=== PATIENT | male | born 1965 | race Caucasian/White ===

== ENCOUNTER 2017-04-18 13:02 | Observation (INO) | payer OTHER, SELFPAY | END 2017-04-20 09:30 | disposition home or self-care (01) | PROVIDERS: Admitting Provider Family Medicine; Emergency Provider Emergency Medicine; Family Provider Internal Medicine Adolescent Medicine; Visit Provider Internal Medicine Adolescent Medicine | DX: K25.0 Acute gastric ulcer with hemorrhage (principal); I10 Essential (primary) hypertension | CPT/HCPCS: 43239; 36415; 80048; 80053; 85014; 85018; 85025; 86850; 86900; 86901; 86920; 86922; 93005; 96365; 96375; 96376; 99285; G0378; J2270; J2405 ==

== ENCOUNTER → 2017-06-09 07:46 | Outpatient (CLI) | payer OTHER, SELFPAY ==
[2017-06-09 08:32] LABS: White Blood Count 4.9 K/mm3 (4.8-10.8)
[2017-06-09 08:36] LABS: Basophils % 1.1 % (0.1-2.0); Eosinophils # 0.2 K/mm3 (0.0-0.4); Lymphocytes # 1.3 K/mm3 (0.7-4.5); Lymphocytes % 28.8 K/mm3 (10-50); Mean Corpuscular HGB Conc 29.6 g/dL (31.8-35.4); Mean Corpuscular Hemoglobin 21.6 pg (27.0-31.2); Mean Platelet Volume 7.4 fl (7.4-10.4); Monocytes # 0.4 K/mm3 (0.1-1.0); Monocytes % 8.7 % (1.7-9.3); Neutrophils # 2.8 K/mm3 (1.8-7.8); Neutrophils % 57.3 % (37.0-80.0); Platelet Count 228 K/mm3 (142-424); Red Cell Distribution Width 14.9 % (11.5-17.5)
[2017-06-09 08:37] LABS: Basophils # 0.1 K/mm3 (0-0.2)
[2017-06-09 08:43] LABS: Anion Gap 8.2 mEq/L (5-15); Blood Urea Nitrogen 12 mg/dL (7-18); Carbon Dioxide 32 mmol/L (21.0-32.0); Chloride 103 mmol/L (98-107); Creatinine,Serum 0.66 mg/dL (0.70-1.30); Estimated Glomerular Filt Rate 128 ml/min (>60); GFR (African American) 155 ML/MIN (>60); Glucose 97 mg/dL (74-106); Potassium 4.2 mmoL/L (3.5-5.1); Sodium 139 mmol/L (136-145)
[2017-06-09 08:48] LABS: Hemoglobin 8.7 g/dL (14.1-18.0); Red Blood Count 4.02 M/mm3 (4.60-6.20)
[2017-06-09 08:49] LABS: Hematocrit 29.3 % (42.0-52.0)
== END ==
PROVIDERS: PCP Internal Medicine Adolescent Medicine; Visit Provider Surgery
DX: K25.3 Acute gastric ulcer without hemorrhage or perforation (principal)
CPT/HCPCS: 36415; 80048; 85025

== ENCOUNTER → 2017-06-20 10:59 | Outpatient (POV) | payer OTHER, SELFPAY ==
[2017-06-20 11:07] VITALS: BP 178/65; PULSE 85; RESP 20; TEMP 36.4; O2SAT 100; BMI 43.0
--- NOTE | 2017-06-20 11:27 | HMH.PAINSOAP ---
[facility] Pain Management SOAP Note Subjective:: This patient is a pleasant 52-year-old white male who presents today for pain medication refills. Patient is being treated for chronic pain secondary to degenerative disease of the lumbar line and bilateral sacroiliitis. Patient had been scheduled for a left SI joint injection however he had been in the hospital for gastric ulcers. Patient is doing better now and would like to revisit getting bilateral SI joint injections. Patient is being medically managed with [place] 7.5 mg 1 p.o. 3 times daily. States the medication helps 60-70%. Patient denies any side effects to the medication. 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 He rates his pain as 7 out of 10 today. Patient states certain movements exacerbate the pain. While resting relieves it. ROS General: no recent weight change, no fever, no sleep disturbances Respiratory: no cough, no shortness of air, no recurring pulmonary infections Cardiovascular/Peripheral Vascular: No chest pain, No palpitations, no edema, no shortness of breath. Gastrointestinal: no incontinence, normal bowel movements reported Genitourinary: no incontinence Musculoskeletal: Back pain, SI joint pain Psychiatric: normal mood/ affect, Neurological: [denies weakness in extremities], [denies balance issues] Objective:: Physical Exam General: Alert and oriented x3, no acute distress, pleasant and cooperative, [on room air] Lungs: Resps E/U, Symmetrical chest expansion, Eyes: PERRL Musculoskeletal: Flexion and extension of lumbar spine somewhat guarded secondary to pain, deep tendon reflexes normal, strength in upper and lower extremities [5/5], slightly antalgic gait noted, positive Jewell's test bilaterally Neurological: speech clear, coronary care unit nurse equal, no gross sensory deficits Assessment:: Degenerative disc disease of the lumbar spine, bilateral sacroilitis Plan:: We will refill this patient's medication [place] 7.5 mg p.o. 3 times daily. Patient's UDS in the past has been appropriate. Patient is [facility] [id number] reviewed and appropriate. Dr. Figueroa reviewed this chart and agrees with this plan of care. We will give him two months worth of prescriptions and he can return for his third month. We will also schedule bilateral SI joint injections for this. He has had these in the past with great relief. Patient has been prescribed a controlled substance after being counseled on the medication, medication safety, and possible side effects. AZIZA report has been obtained and reviewed prior to prescription and found to be appropriate. Opioid contract was reviewed and signed by the patient, and that they have agreed to all of the terms set forth by our compliance program. This note was dictated using voice recognition software and may contain errors or omissions
--- NOTE | 2017-06-20 11:31 | P.CONS_ITS ---
[facility] Pain Management SOAP Note Subjective:: This patient is a pleasant 52-year-old white male who presents today for pain medication refills. Patient is being treated for chronic pain secondary to degenerative disease of the lumbar line and bilateral sacroiliitis. Patient had been scheduled for a left SI joint injection however he had been in the hospital for gastric ulcers. Patient is doing better now and would like to revisit getting bilateral SI joint injections. Patient is being medically managed with [place] 7.5 mg 1 p.o. 3 times daily. States the medication helps 60- 70%. Patient denies any side effects to the medication. 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 He rates his pain as 7 out of 10 today. Patient states certain movements exacerbate the pain. While resting relieves it. ROS General: no recent weight change, no fever, no sleep disturbances Respiratory: no cough, no shortness of air, no recurring pulmonary infections Cardiovascular/Peripheral Vascular: No chest pain, No palpitations, no edema, no shortness of breath. Gastrointestinal: no incontinence, normal bowel movements reported Genitourinary: no incontinence Musculoskeletal: Back pain, SI joint pain Psychiatric: normal mood/ affect, Neurological: [denies weakness in extremities], [denies balance issues] Objective:: Physical Exam General: Alert and oriented x3, no acute distress, pleasant and cooperative, [ on room air] Lungs: Resps E/U, Symmetrical chest expansion, Eyes: PERRL Musculoskeletal: Flexion and extension of lumbar spine somewhat guarded secondary to pain, deep tendon reflexes normal, strength in upper and lower extremities [5/5], slightly antalgic gait noted, positive Jewell's test bilaterally Neurological: speech clear, pulp bleacher equal, no gross sensory deficits Assessment:: Degenerative disc disease of the lumbar spine, bilateral sacroilitis Plan:: We will refill this patient's medication [place] 7.5 mg p.o. 3 times daily. Patient's UDS in the past has been appropriate. Patient is [facility] [id number] reviewed and appropriate. Dr. Figueroa reviewed this chart and agrees with this plan of care. We will give him two months worth of prescriptions and he can return for his third month. We will also schedule bilateral SI joint injections for this. He has had these in the past with great relief. Patient has been prescribed a controlled substance after being counseled on the medication, medication safety, and possible side effects. AZIZA report has been obtained and reviewed prior to prescription and found to be appropriate. Opioid contract was reviewed and signed by the patient, and that they have agreed to all of the terms set forth by our compliance program. This note was dictated using voice recognition software and may contain errors or omissions
== END ==
PROVIDERS: Family Provider Internal Medicine Adolescent Medicine; PCP Internal Medicine Adolescent Medicine; Visit Provider Clinical Nurse Specialist Family Health
DX: M46.1 Sacroiliitis, not elsewhere classified (principal)
CPT/HCPCS: 99212

== ENCOUNTER 2017-06-22 08:05 | Day surgery (SDC) | payer OTHER, SELFPAY ==
[2017-06-14 10:21] VITALS: BMI 43.0
[2017-06-22] VITALS (26 sets, daily range): BP systolic 125–170; BP diastolic 68–99; PULSE 62–90; RESP 18–200; TEMP 36.4–37.2; O2SAT 96–99
--- NOTE | 2017-06-22 08:51 | HMH.ANESCL ---
[facility] Anesthesia Checklist - Patient Identification Patient Identification: Arm Band, Verbal (Name & ) - Structural Data Admitted From: Home Planned Operative Procedure/s: egd Consent for Planned Operative Procedure(s) Verified: Yes Verified Documents: Surgical Consent - Chart Verification Results Verified: CBC, BMP - Additional verifications Patient : No Anesthesia Reactions: No Hx Blood Transfusions: Yes Blood Transfusion Reaction: No Cephalosporin Allergy: No Previous Colonoscopy: Yes - Cardiovascular Assessment Heart Sounds: S1 & S2 Pulse Strength: Baseline Pulse Rhythm: Regular Peripheral Edema: No - Airway Assessment C-Spine Mobility Assessed: Yes TMJ Mobility Assessed: Yes Dentition: Good Dentition - Neurological Assessment Level of Consciousness: Awake, Alert, Appropriate - Anesthesia Plan Anesthesia Risk discussed: Yes Anesthesia Plan: Verified ASA Class: III Anesthesia Type: MAC [facility] Anesthesia HX I have reviewed the patient's past medical history: Yes Medical History: Reports:: Gastrointestinal Bleed, Hypertension Denies:: Diabetes Mellitus Type 1, Diabetes Mellitus Type 2, Internal Pacemaker, Lung Disease, Seizures Other Surgeries: Yes: Appendectomy, EGD, Other (L4-5 fusion). No: Pacemaker *Family Hx:: Unable to obtain
--- NOTE | 2017-06-22 09:23 | HMH.SCOPE ---
- Procedure: Date: 06/22/17 Procedure Performed:: Esophagogastroduodenoscopy with biopsy Indications:: Recurrent antral ulcer Performing Provider:: Denys More MD Referring Provider:: Dr. Patel Sedation:: Monitored anesthesia care Procedure:: After informed consent was obtained, the patient was taken to the endoscopy suite. Monitored anesthesia care ensued after he was transferred to the left lateral decubitus position. The gastroscope was advanced. The stomach was entered. Retroflexion revealed a sliding hiatal hernia that was unchanged. Evaluation distally revealed some inflammatory changes at the site of prior ulceration. Minute shallow ulceration may have persisted, but essentially 99% healing was noted. Biopsies of the area were obtained. The pylorus was intubated. The duodenal mucosa appeared relatively normal. The gastroscope was carefully removed and the patient was transferred to recovery. Findings:: Unchanged sliding hiatal hernia Essentially 99% healing of ulceration Specimens:: Antral biopsy Recommendations:: Continue current medications Complications:: No immediate Estimated blood obtained (mL): 1
[2017-06-22 09:45] LABS: Hematocrit 30.3 % (42.0-52.0); Hemoglobin 8.9 g/dL (14.1-18.0)
--- NOTE | 2017-06-22 15:01 | SUR.PHASEII ---
1st unit was verified by lidia bonds rn at 1123. 2nd unit wsa verified by annika zee rn at [id number]
[2017-06-22 16:10] LABS: Hematocrit 35.2 % (42.0-52.0)
[2017-06-22 16:19] LABS: Hemoglobin 10.5 g/dL (14.1-18.0)
== END 2017-06-22 16:05 ==
PROVIDERS: Family Provider Internal Medicine Adolescent Medicine; PCP Internal Medicine Adolescent Medicine; Visit Provider Surgery
PROC: 0DJ08ZZ Inspection of Upper Intestinal Tract, Via Natural or Artificial Opening Endoscopic (ICD-10-PCS; CPT 43235; principal; 2017-06-22 08:45)
DX: K25.9 Gastric ulcer, unspecified as acute or chronic, without hemorrhage or perforation (principal); K44.9 Diaphragmatic hernia without obstruction or gangrene
CPT/HCPCS: 43239; 36415; 36430; 85014; 85018; 86850; P9016

== ENCOUNTER → 2017-07-14 11:52 | Outpatient (CLI) | payer OTHER, SELFPAY ==
[2017-07-14 12:30] LABS: Alanine Aminotransferase 28 U/L (12-78); Albumin Level 4.1 gm/dL (3.4-5.0); Alkaline Phosphatase 59 U/L (46-116); Anion Gap 9.1 mEq/L (5-15); Aspartate Amino Transferase 23 U/L (15-37); Bilirubin,Total 0.5 mg/dL (0.2-1.0); Blood Urea Nitrogen 12 mg/dL (7-18); Calcium 8.8 mg/dL (8.5-10.1); Carbon Dioxide 31 mmol/L (21.0-32.0); Chloride 100 mmol/L (98-107); Cholesterol 185 mg/dL (140-200); Creatinine,Serum 0.74 mg/dL (0.70-1.30); Estimated Glomerular Filt Rate 112 ml/min (>60); GFR (African American) 135 ML/MIN (>60); Globulin 4.3 gm/dl (1.3-3.2); Glucose 109 mg/dL (74-106); HDL Cholesterol 46 mg/dL (27-67); LDL Cholesterol 116 mg/dL (0-130); Potassium 4.1 mmoL/L (3.5-5.1); Sodium 136 mmol/L (136-145); Total Protein,Serum 8.4 gm/dL (6.4-8.2); Triglycerides 116 mg/dL (30-200); VLDL Cholesterol 23 mg/dL (0-40)
== END ==
PROVIDERS: Visit Provider Nurse Practitioner Family
DX: I10 Essential (primary) hypertension (principal); E03.9 Hypothyroidism, unspecified
CPT/HCPCS: 36415; 80053; 80061; 84443

== ENCOUNTER → 2017-09-11 09:45 | Outpatient (POV) | payer OTHER, SELFPAY ==
[2017-09-11 09:52] VITALS: BP 182/101; PULSE 76; RESP 18; O2SAT 97; BMI 42.8
--- NOTE | 2017-09-11 10:08 | HMH.PAINSOAP ---
[facility] Pain Management SOAP Note Subjective:: Patient is a pleasant 52-year-old white male who presents today for pain medication refills. Patient is being treated for chronic pain secondary to degenerative disc disease of the lumbar spine and bilateral sacroiliitis. Patient also has bilateral osteoarthritis of the knees. Patient has tried and failed medications, anti-inflammatories, physical therapy, stretching exercises. Patient is interested in getting bilateral knee injections. I believe that this would be beneficial given his increase in activity of summer months. Patient does work full-time. Patient's being medically managed with [place] 7.5mg 1 PO TID. also patient is on gabapentin 300 mg 1 p.o. 3 times daily. Denies any side effects to the medication. ROS General: no recent weight change, no fever, no sleep disturbances Respiratory: no cough, no shortness of air, no recurring pulmonary infections Cardiovascular/Peripheral Vascular: No chest pain, No palpitations, no edema, no shortness of breath. Gastrointestinal: no incontinence, normal bowel movements reported Genitourinary: no incontinence Musculoskeletal: Pain, bilateral knee pain, bilateral SI joint pain Psychiatric: normal mood/ affect, [denies depression], [denies anxiety] Neurological: [denies weakness in extremities], [denies balance issues] Objective:: Physical Exam General: Alert and oriented x3, no acute distress, pleasant and cooperative, [on room air] Lungs: Resps E/U, Symmetrical chest expansion, Eyes: PERRL Musculoskeletal: Flexion and extension of lumbar spine somewhat guarded secondary to pain, range of motion bilateral knees somewhat guarded secondary to pain deep tendon reflexes normal, strength in upper and lower extremities [5/5], [abnormal gait noted] Neurological: speech clear, director semiconductor equal, no gross sensory deficits Assessment:: Degenerative disc disease of the lumbar spine, bilateral sacroiliitis, bilateral osteoarthritis of the knees Plan:: We will schedule bilateral intra articular knee injections for the patient. Has done extremely well with injections in the past. Patient's tried and failed physical therapy, stretching therapy, anti-inflammatories, medications. We will also refill the patient's [place] 7.5 mg 1 p.o. 3 times daily. We will also increase his gabapentin to 600 mg 1 p.o. 3 times daily. We will give him 2 months worth of prescriptions. He can picker / packer his third month in the interim. I will follow-up with the patient after his injections. Dr. Figueroa has reviewed this chart and agrees with this plan of care. Patient's AZIZA #[id number] reviewed and appropriate. Patient's urine has been appropriate in the past. Patient has been prescribed a controlled substance after being counseled on the medication, medication safety, and possible side effects. AZIZA report has been obtained and reviewed prior to prescription and found to be appropriate. Opioid contract was reviewed and signed by the patient, and that they have agreed to all of the terms set forth by our compliance program. This note was dictated using voice recognition software and may contain errors or omissions
--- NOTE | 2017-09-11 10:13 | P.CONS_ITS ---
[facility] Pain Management SOAP Note Subjective:: Patient is a pleasant 52-year-old white male who presents today for pain medication refills. Patient is being treated for chronic pain secondary to degenerative disc disease of the lumbar spine and bilateral sacroiliitis. Patient also has bilateral osteoarthritis of the knees. Patient has tried and failed medications, anti-inflammatories, physical therapy, stretching exercises. Patient is interested in getting bilateral knee injections. I believe that this would be beneficial given his increase in activity of summer months. Patient does work full-time. Patient's being medically managed with [place] 7.5mg 1 PO TID. also patient is on gabapentin 300 mg 1 p.o. 3 times daily. Denies any side effects to the medication. ROS General: no recent weight change, no fever, no sleep disturbances Respiratory: no cough, no shortness of air, no recurring pulmonary infections Cardiovascular/Peripheral Vascular: No chest pain, No palpitations, no edema, no shortness of breath. Gastrointestinal: no incontinence, normal bowel movements reported Genitourinary: no incontinence Musculoskeletal: Pain, bilateral knee pain, bilateral SI joint pain Psychiatric: normal mood/ affect, [denies depression], [denies anxiety] Neurological: [denies weakness in extremities], [denies balance issues] Objective:: Physical Exam General: Alert and oriented x3, no acute distress, pleasant and cooperative, [ on room air] Lungs: Resps E/U, Symmetrical chest expansion, Eyes: PERRL Musculoskeletal: Flexion and extension of lumbar spine somewhat guarded secondary to pain, range of motion bilateral knees somewhat guarded secondary to pain deep tendon reflexes normal, strength in upper and lower extremities [5/ 5], [abnormal gait noted] Neurological: speech clear, winemaker equal, no gross sensory deficits Assessment:: Degenerative disc disease of the lumbar spine, bilateral sacroiliitis, bilateral osteoarthritis of the knees Plan:: We will schedule bilateral intra articular knee injections for the patient. Has done extremely well with injections in the past. Patient's tried and failed physical therapy, stretching therapy, anti-inflammatories, medications. We will also refill the patient's [place] 7.5 mg 1 p.o. 3 times daily. We will also increase his gabapentin to 600 mg 1 p.o. 3 times daily. We will give him 2 months worth of prescriptions. He can fruit or nut picker his third month in the interim. I will follow-up with the patient after his injections. Dr. Figueroa has reviewed this chart and agrees with this plan of care. Patient's AZIZA # [id number] reviewed and appropriate. Patient's urine has been appropriate in the past. Patient has been prescribed a controlled substance after being counseled on the medication, medication safety, and possible side effects. AZIZA report has been obtained and reviewed prior to prescription and found to be appropriate. Opioid contract was reviewed and signed by the patient, and that they have agreed to all of the terms set forth by our compliance program. This note was dictated using voice recognition software and may contain errors or omissions
[2017-09-11 10:42] LABS: Amphetamine/Metha Screen,Urine Negative ng/mL (<1000); Barbiturates Screen,Urine Negative ng/mL (<200); Benzodiazepines Screen,Urine Positive ng/mL (200); Cannabinoid Screen,Urine Negative ng/mL (<50); Cocaine Screen,Urine Negative ng/g (<300); Methadone Screen,Urine Negative ng/mL (<300); Opiate Screen,Urine Positive ng/mL (<300); Phencyclidine Screen,Urine Negative ng/mL (<25)
--- NOTE | 2017-09-12 09:30 | PC.PHONENOTE ---
09/08/17-Called in Rx for Gabapentin 600mg TID with 2 refills per provider order
[2017-09-16 10:12] LABS: Codeine Negative (Cutoff=100); Hydrocodone Positive (.); Hydromorphone Positive (.); Morphine Negative (Cutoff=100)
[2017-09-16 19:34] LABS: Opiates Positive (.)
== END ==
PROVIDERS: Family Provider Internal Medicine Adolescent Medicine; PCP Internal Medicine Adolescent Medicine; Visit Provider Clinical Nurse Specialist Family Health
DX: M51.36 Other intervertebral disc degeneration, lumbar region (principal); M46.1 Sacroiliitis, not elsewhere classified; M17.0 Bilateral primary osteoarthritis of knee; Z79.899 Other long term (current) drug therapy
CPT/HCPCS: 80305; 80361; 80365; 99212; G0480

== ENCOUNTER → 2017-11-13 14:34 | Outpatient (POV) | payer OTHER, SELFPAY ==
[2017-11-13 14:43] VITALS: BP 179/100; PULSE 68; RESP 18; O2SAT 98; BMI 43.0
--- NOTE | 2017-11-13 14:47 | HMH.PAINSOAP ---
[facility] Pain Management SOAP Note Subjective:: Patient is a pleasant 52-year-old white male who presents today for follow-up after bilateral knee injections. Patient states that he has no knee pain. Patient is doing very well. Patient did begin to have more SI joint pain. Patient has had SI joint injection past with 80 to relief lasting up to 3 months. Patient would like to repeat these. Patient completed physical therapy along with chiropractic therapy. Patient is continuing to do home stretching regimen at home. Patient's tried and failed anti-inflammatories along with medications. Patient is currently on [place] 7.5 mg 1 p.o. 3 times daily. He states it helps up to 60% a patient's AZIZA #[id number] reviewed and appropriate. Patient's urine drug screen has been appropriate in the past. ROS General: no recent weight change, no fever, no sleep disturbances Respiratory: no cough, no shortness of air, no recurring pulmonary infections Cardiovascular/Peripheral Vascular: No chest pain, No palpitations, no edema, no shortness of breath. Gastrointestinal: no incontinence, normal bowel movements reported Genitourinary: no incontinence Musculoskeletal: Bilateral SI joint pain Psychiatric: normal mood/ affect Neurological: [denies weakness in extremities], [denies balance issues] Objective:: Physical Exam General: Alert and oriented x3, no acute distress, pleasant and cooperative, [on room air] Lungs: Resps E/U, Symmetrical chest expansion, Eyes: PERRL Musculoskeletal: Flexion and extension of lumbar spine somewhat guarded secondary to pain, deep tendon reflexes normal, strength in upper and lower extremities [5/5], slightly antalgic gait noted, positive Jewell's test bilaterally Neurological: speech clear, motor express clerk equal, no gross sensory deficits Assessment:: Sacroiliitis, osteoarthritis Plan:: We will schedule bilateral SI joint injections for the patient. Patient is continuing his home stretching her in. Patient completed physical therapy and chiropractic therapy. Patient's failed medications. Patient is not on any anticoagulation therapy. Given the efficacy of these injections in the past I believe it would be beneficial to repeat them. I will follow-up with the patient after his injections. We will also refill his [place] 7.5 mg 1 p.o. 3 times daily. We will give him 2 months worth of prescriptions and he can pick the third one up in the interim. Patient's AZIZA and UDS both were. Dr. Figueroa is reviewed this chart and agrees with this plan of care. Patient has been prescribed a controlled substance after being counseled on the medication, medication safety, and possible side effects. AZIZA report has been obtained and reviewed prior to prescription and found to be appropriate. Opioid contract was reviewed and signed by the patient, and that they have agreed to all of the terms set forth by our compliance program. This note was dictated using voice recognition software and may contain errors or omissions
== END ==
PROVIDERS: Visit Provider Clinical Nurse Specialist Family Health
DX: M17.0 Bilateral primary osteoarthritis of knee (principal)
CPT/HCPCS: 99212